=== PATIENT | female | born 1930 | race Caucasian/White ===

== ENCOUNTER 2018-10-06 07:17 | Inpatient (IN) ==
[2018-10-06] MEDS ORDERED: SODIUM CHLORIDE 0.9% 1,000 ML IV SCH (10:00)
[2018-10-06] MEDS ORDERED: GLUCAGON 1 MG VIAL IM PRN (10:36)
[2018-10-06] MEDS ORDERED: DEXTROSE 50% 25 GM/50 ML VIAL IV PRN (10:36)
[2018-10-06] MEDS: ALBUTEROL/IPRATROPIUM 3 ML NEB RESP TX SCH ×4 (11:02→23:05)
[2018-10-06] MEDS: PANTOPRAZOLE 40 MG VIAL IV SCH (11:09)
[2018-10-06] MEDS: MEROPENEM 500 MG in SODIUM CHLORIDE 0.9% 100 ML IV SCH ×2 (11:09→17:34)
[2018-10-06 11:15] LABS: ABG Base Excess -2.7 MMOL/L (-2.5-2.5); ABG HCO3 22.1 MMOL/L (20-26); ABG Oxygen Saturation 93.8 % (95-100); ABG PCO2 43.1 MM HG (35-48); ABG PH 7.338 (7.35-7.45); ABG PO2 72.1 MM HG (80-95); ABG TCO2 20.6 MMOL/L (23-27)
[2018-10-06] MEDS: FLUOROMETHOLONE 0.1% OPH SUSP 5 ML BOTTLE BOTH EYES SCH (13:18)
[2018-10-06] MEDS: INSULIN REGULAR 100 UNIT/ML SUBCUT SCH ×3 (13:18→22:13)
[2018-10-06] MEDS: ACETYLCYSTEINE 20% 800 MG/4 ML VIAL RESP TX SCH ×2 (14:25→23:05)
[2018-10-06] MEDS: ONDANSETRON 4 MG/2 ML VIAL IV PRN (17:12)
[2018-10-06] MEDS: FUROSEMIDE 40 MG/4 ML VIAL IV SCH (17:12)
[2018-10-06] MEDS: TIMOLOL 0.5% OPH SOLN 5 ML BOTTLE BOTH EYES SCH (22:14)
[2018-10-06] MEDS: ENOXAPARIN 40 MG/0.4 ML SYRINGE SUBCUT SCH (22:14)
[2018-10-06] MEDS: PRAVASTATIN 20 MG TABLET PO SCH (22:25)
[2018-10-06 23:30] LABS: Troponin I 0.018 NG/ML (0.00-0.045)
[2018-10-07] MEDS: ALBUTEROL/IPRATROPIUM 3 ML NEB RESP TX SCH ×6 (02:34→22:55)
[2018-10-07] MEDS: MEROPENEM 500 MG in SODIUM CHLORIDE 0.9% 100 ML IV SCH ×3 (02:58→18:07)
[2018-10-07 03:50] LABS: ABG HCO3 24.4 MMOL/L (20-26); ABG Oxygen Saturation 94.6 % (95-100); ABG PH 7.415 (7.35-7.45); ABG PO2 73.4 MM HG (80-95); ABG TCO2 21.6 MMOL/L (23-27); Allen Test Positive; Pt O2 Delivery Device BIPAP
[2018-10-07 04:38] LABS: Basophils % 0.1 % (0.0-0.8); Eosinophils % 0.1 % (0.00-10.9); Hematocrit 35.2 VOL% (35.7-47.0); Hemoglobin 11.4 GM/DL (12.0-16.0); Immature Granulocytes % 0.5 %; Immature Granulocytes Absolute 0.09 #; Lymphocytes # 1.5 10*3/uL (1.4-4.0); Lymphocytes % 8.1 % (21.3-54.2); Mean Corpuscular HGB Conc 32.4 GM/DL (32-36); Mean Corpuscular Hemoglobin 30 PG (27-34); Mean Corpuscular Volume 91.2 FL (87-102); Mean Platelet Volume 12.3 FL (9.6-12.0); Monocytes # 1.3 10*3/uL (0.11-0.8); Monocytes % 7.4 % (1.7-12.7); NRBC # 0.02 10*3/uL; Neutrophils # 15.3 10*3/uL (1.4-7.4); Neutrophils % 83.8 % (38.7-73.9); Platelet Count 232 T/CUMM (130-400); Red Blood Count 3.86 MC/CUMM (3.8-5.5); Red Cell Distribution Width 14.6 % (9.3-17.3); White Blood Count 18.2 T/CUMM (4-12)
[2018-10-07 05:18] LABS: Albumin 2.5 G/DL (3.4-5.0); Bilirubin,Total 0.9 MG/DL (0.2-1.0); Calcium 8.1 MG/DL (8.5-10.1); Osmolality,Calculated 280.1 MOS/KG (273-304); Potassium 3.7 MMOL/L (3.5-5.1); Total Protein 6.3 G/DL (6.4-8.3)
[2018-10-07 05:24] LABS: Troponin I 0.021 NG/ML (0.00-0.045)
[2018-10-07] MEDS ORDERED: PHENYLEPHRINE DRIP 40 MG/250 ML PREMIX IV ONE (06:49)
[2018-10-07] MEDS: PHENYLEPHRINE DRIP 40 MG/250 ML PREMIX IV PRN (06:53)
[2018-10-07] MEDS: ACETYLCYSTEINE 20% 800 MG/4 ML VIAL RESP TX SCH ×3 (07:35→22:56)
[2018-10-07] MEDS: INSULIN REGULAR 100 UNIT/ML SUBCUT SCH ×4 (08:42→22:04)
[2018-10-07] MEDS: AMIODARONE 200 MG TABLET PO SCH (08:43)
[2018-10-07] MEDS: CLOPIDOGREL 75 MG TABLET PO SCH (08:43)
[2018-10-07] MEDS: PANTOPRAZOLE 40 MG VIAL IV SCH (08:43)
[2018-10-07] MEDS: FUROSEMIDE 40 MG/4 ML VIAL IV SCH ×2 (08:43→15:59)
[2018-10-07] MEDS: TIMOLOL 0.5% OPH SOLN 5 ML BOTTLE BOTH EYES SCH ×2 (08:44→22:15)
[2018-10-07 10:09] LABS: Apearance,Urine Slightly Hazy (Clear); Bacteria,Urine Occasional /HPF (Few); Bilirubin,Urine Negative (Negative); Blood, Urine Small mg/dL (Negative); Glucose,Urine (UA) Negative (Negative); Ketones,Urine Negative (Negative); Mucus,Urine Occasional /LPF (Occasional); Nitrite,Urine Negative (Negative); Protein,Urine Negative; Squamous Epithelial Cell,Urine Occasional /HPF (0-10); Urine Color Yellow (Yellow); Urine Specific Gravity 1.006 (1.001-1.035); Urine Urobilinogen < 2.0 EU/DL (0.2-1.0); WBC,Urine 2 /HPF (0-6)
[2018-10-07] MEDS: FLUOROMETHOLONE 0.1% OPH SUSP 5 ML BOTTLE BOTH EYES SCH (11:15)
[2018-10-07] MEDS ORDERED: ASPIRIN CHEW 81 MG TABLET PO ONE (21:15)
[2018-10-07] MEDS ORDERED: NITROGLYCERIN SL 0.4 MG TABLET SL ONE (21:18)
[2018-10-07] MEDS ORDERED: MORPHINE 4 MG/1 ML VIAL ONE (21:18)
[2018-10-07] MEDS: NITROGLYCERIN SL 0.4 MG TABLET SL PRN ×2 (21:20→21:30)
[2018-10-07] MEDS: MORPHINE 4 MG/1 ML VIAL IV PRN (21:28)
[2018-10-07] MEDS: ONDANSETRON 4 MG/2 ML VIAL IV PRN (21:55)
[2018-10-07] MEDS: PRAVASTATIN 20 MG TABLET PO SCH (22:04)
[2018-10-07] MEDS: ENOXAPARIN 40 MG/0.4 ML SYRINGE SUBCUT SCH (22:04)
[2018-10-07] MEDS: DORZOLAMIDE 2% OPH SOLN 10 ML BOTTLE BOTH EYES SCH (22:15)
[2018-10-08 01:24] LABS: Troponin I 0.025 NG/ML (0.00-0.045)
[2018-10-08] MEDS: MEROPENEM 500 MG in SODIUM CHLORIDE 0.9% 100 ML IV SCH ×3 (03:34→17:39)
[2018-10-08] MEDS: ALBUTEROL/IPRATROPIUM 3 ML NEB RESP TX SCH ×6 (04:30→23:50)
[2018-10-08 04:32] LABS: Basophils % 0.1 % (0.0-0.8); Eosinophils % 0.1 % (0.00-10.9); Hematocrit 37.4 VOL% (35.7-47.0); Hemoglobin 11.9 GM/DL (12.0-16.0); Immature Granulocytes % 0.6 %; Immature Granulocytes Absolute 0.11 #; Lymphocytes # 1.1 10*3/uL (1.4-4.0); Lymphocytes % 5.6 % (21.3-54.2); Mean Corpuscular HGB Conc 31.8 GM/DL (32-36); Mean Corpuscular Hemoglobin 29 PG (27-34); Mean Corpuscular Volume 91.7 FL (87-102); Mean Platelet Volume 11.5 FL (9.6-12.0); Monocytes # 1.6 10*3/uL (0.11-0.8); Monocytes % 8.6 % (1.7-12.7); NRBC # 0.02 10*3/uL; Neutrophils # 16.1 10*3/uL (1.4-7.4); Platelet Count 311 T/CUMM (130-400); Red Blood Count 4.08 MC/CUMM (3.8-5.5); Red Cell Distribution Width 15.1 % (9.3-17.3); White Blood Count 18.9 T/CUMM (4-12)
[2018-10-08 04:45] LABS: ABG Base Excess 1.7 MMOL/L (-2.5-2.5); ABG HCO3 25.8 MMOL/L (20-26); ABG Oxygen Saturation 91.9 % (95-100); ABG PH 7.438 (7.35-7.45); ABG PO2 63.6 MM HG (80-95); ABG TCO2 22.6 MMOL/L (23-27); Pt O2 Delivery Device BIPAP
[2018-10-08 04:55] LABS: INR 1.1; PT Patient Result 11.6 SECS
[2018-10-08 04:56] LABS: Troponin I 0.019 NG/ML (0.00-0.045)
[2018-10-08 05:15] LABS: Albumin 2.4 G/DL (3.4-5.0); Bilirubin,Total 0.9 MG/DL (0.2-1.0); Calcium 7.5 MG/DL (8.5-10.1); Osmolality,Calculated 285.7 MOS/KG (273-304); Total Protein 6.4 G/DL (6.4-8.3)
[2018-10-08] MEDS: PHENYLEPHRINE DRIP 40 MG/250 ML PREMIX IV PRN ×3 (06:40→18:03)
[2018-10-08] MEDS: ACETYLCYSTEINE 20% 800 MG/4 ML VIAL RESP TX SCH ×3 (07:02→23:51)
[2018-10-08] MEDS ORDERED: FUROSEMIDE 40 MG/4 ML VIAL IV ONE (09:36)
[2018-10-08] MEDS: INSULIN REGULAR 100 UNIT/ML SUBCUT SCH ×4 (10:05→23:23)
[2018-10-08] MEDS: AMIODARONE 200 MG TABLET PO SCH (10:05)
[2018-10-08] MEDS: CLOPIDOGREL 75 MG TABLET PO SCH (10:06)
[2018-10-08] MEDS: POTASSIUM CHLORIDE 20 MEQ TABLET PO SCH ×4 (10:06→23:44)
[2018-10-08] MEDS: PANTOPRAZOLE 40 MG VIAL IV SCH (10:06)
[2018-10-08] MEDS: DIGOXIN 0.5 MG/2 ML AMP IV ONE ×2 (10:08→12:35)
[2018-10-08] MEDS: ASPIRIN EC 81 MG TABLET PO SCH (10:08)
[2018-10-08] MEDS: FUROSEMIDE 40 MG/4 ML VIAL IV SCH ×2 (10:19→15:51)
[2018-10-08] MEDS: TIMOLOL 0.5% OPH SOLN 5 ML BOTTLE BOTH EYES SCH ×2 (10:23→23:16)
[2018-10-08] MEDS: DORZOLAMIDE 2% OPH SOLN 10 ML BOTTLE BOTH EYES SCH ×2 (10:24→23:16)
[2018-10-08] MEDS: LEVOFLOXACIN INJ 500 MG in PREMIX 1 EACH IV SCH (11:58)
[2018-10-08] MEDS ORDERED: DIGOXIN 0.5 MG/2 ML AMP ONE (12:25)
[2018-10-08] MEDS ORDERED: DIGOXIN 0.5 MG/2 ML AMP IV ONE (12:31)
[2018-10-08] MEDS: FLUOROMETHOLONE 0.1% OPH SUSP 5 ML BOTTLE BOTH EYES SCH (15:08)
[2018-10-08] MEDS: METOPROLOL TARTRATE 5 MG/5 ML VIAL IV SCH (17:39)
[2018-10-08] MEDS: ENOXAPARIN 40 MG/0.4 ML SYRINGE SUBCUT SCH (23:16)
[2018-10-08] MEDS ORDERED: POTASSIUM CHLORIDE 20 MEQ TABLET PO SCH (23:45)
[2018-10-09] MEDS: METOPROLOL TARTRATE 5 MG/5 ML VIAL IV SCH ×5 (00:02→17:21)
[2018-10-09] MEDS: ALBUTEROL/IPRATROPIUM 3 ML NEB RESP TX SCH ×6 (03:09→23:50)
[2018-10-09] MEDS: PHENYLEPHRINE DRIP 40 MG/250 ML PREMIX IV PRN ×3 (03:30→22:13)
[2018-10-09] MEDS: MEROPENEM 500 MG in SODIUM CHLORIDE 0.9% 100 ML IV SCH ×3 (03:55→17:36)
[2018-10-09 04:32] LABS: Basophils % 0.1 % (0.0-0.8); Hematocrit 38.1 VOL% (35.7-47.0); Hemoglobin 11.8 GM/DL (12.0-16.0); Immature Granulocytes % 0.4 %; Immature Granulocytes Absolute 0.08 #; Mean Corpuscular Hemoglobin 28 PG (27-34); Mean Corpuscular Volume 90.9 FL (87-102); Mean Platelet Volume 11.8 FL (9.6-12.0); Monocytes # 2.2 10*3/uL (0.11-0.8); Monocytes % 11.5 % (1.7-12.7); Neutrophils # 15.8 10*3/uL (1.4-7.4); Platelet Count 310 T/CUMM (130-400); Red Blood Count 4.19 MC/CUMM (3.8-5.5); Red Cell Distribution Width 15.3 % (9.3-17.3); White Blood Count 19.1 T/CUMM (4-12)
[2018-10-09 05:04] LABS: Albumin 2.4 G/DL (3.4-5.0); Calcium 8.2 MG/DL (8.5-10.1); Osmolality,Calculated 290.4 MOS/KG (273-304); Potassium 2.9 MMOL/L (3.5-5.1); Total Protein 6.6 G/DL (6.4-8.3)
[2018-10-09] MEDS: ACETYLCYSTEINE 20% 800 MG/4 ML VIAL RESP TX SCH ×3 (07:05→23:50)
[2018-10-09] MEDS: INSULIN REGULAR 100 UNIT/ML SUBCUT SCH ×4 (08:15→21:26)
[2018-10-09] MEDS: DIGOXIN 0.5 MG/2 ML AMP IV SCH (08:15)
[2018-10-09] MEDS: FUROSEMIDE 40 MG/4 ML VIAL IV SCH ×2 (08:16→16:30)
[2018-10-09] MEDS: PANTOPRAZOLE 40 MG VIAL IV SCH (08:16)
[2018-10-09] MEDS: ONDANSETRON 4 MG/2 ML VIAL IV PRN (08:16)
[2018-10-09] MEDS: ASPIRIN EC 81 MG TABLET PO SCH (08:17)
[2018-10-09] MEDS: AMIODARONE 200 MG TABLET PO SCH (08:17)
[2018-10-09] MEDS: TIMOLOL 0.5% OPH SOLN 5 ML BOTTLE BOTH EYES SCH ×2 (08:17→21:21)
[2018-10-09] MEDS: CLOPIDOGREL 75 MG TABLET PO SCH (08:17)
[2018-10-09] MEDS: POTASSIUM CHLORIDE RIDER 20 MEQ in PREMIX 1 EACH IV PRN ×2 (08:18→10:49)
[2018-10-09] MEDS: DORZOLAMIDE 2% OPH SOLN 10 ML BOTTLE BOTH EYES SCH ×2 (08:18→21:22)
[2018-10-09] MEDS: INSULIN GLARGINE 100 UNIT/ML SUBCUT SCH (08:28)
[2018-10-09] MEDS: POTASSIUM CHLORIDE 20 MEQ TABLET PO SCH ×3 (08:28→16:31)
[2018-10-09] MEDS: LEVOFLOXACIN INJ 500 MG in PREMIX 1 EACH IV SCH (09:24)
[2018-10-09] MEDS: ACETAMINOPHEN 325 MG TABLET PO PRN (11:20)
[2018-10-09] MEDS: POTASSIUM CHLORIDE RIDER 10 MEQ in PREMIX 1 EACH IV PRN (12:25)
[2018-10-09] MEDS: FLUOROMETHOLONE 0.1% OPH SUSP 5 ML BOTTLE BOTH EYES SCH (12:26)
[2018-10-09 13:16] LABS: Mycoplasma pneumoniae Ab, IgG Negative (Negative); Mycoplasma pneumoniae Ab, IgM Negative (Negative)
[2018-10-09] MEDS: ENOXAPARIN 40 MG/0.4 ML SYRINGE SUBCUT SCH (21:20)
[2018-10-10] MEDS: METOPROLOL TARTRATE 5 MG/5 ML VIAL IV SCH ×4 (00:01→18:05)
[2018-10-10] MEDS: ALBUTEROL/IPRATROPIUM 3 ML NEB RESP TX SCH ×6 (03:07→23:59)
[2018-10-10] MEDS: MEROPENEM 500 MG in SODIUM CHLORIDE 0.9% 100 ML IV SCH ×3 (03:08→18:05)
[2018-10-10 04:50] LABS: Basophils % 0.1 % (0.0-0.8); Eosinophils % 0.1 % (0.00-10.9); Hemoglobin 12.5 GM/DL (12.0-16.0); Immature Granulocytes % 1.6 %; Immature Granulocytes Absolute 0.32 #; Lymphocytes # 1.4 10*3/uL (1.4-4.0); Mean Corpuscular HGB Conc 31.3 GM/DL (32-36); Mean Corpuscular Hemoglobin 29 PG (27-34); Mean Corpuscular Volume 92.6 FL (87-102); Mean Platelet Volume 11.8 FL (9.6-12.0); Monocytes % 9.8 % (1.7-12.7); Neutrophils # 16.2 10*3/uL (1.4-7.4); Neutrophils % 81.4 % (38.7-73.9); Platelet Count 303 T/CUMM (130-400); Red Blood Count 4.32 MC/CUMM (3.8-5.5); Red Cell Distribution Width 15.1 % (9.3-17.3); White Blood Count 19.9 T/CUMM (4-12)
[2018-10-10 06:03] LABS: Calcium 8.4 MG/DL (8.5-10.1); Osmolality,Calculated 287.3 MOS/KG (273-304); Potassium 2.8 MMOL/L (3.5-5.1)
[2018-10-10] MEDS: POTASSIUM CHLORIDE RIDER 20 MEQ in PREMIX 1 EACH IV PRN ×2 (06:21→09:00)
[2018-10-10] MEDS: ACETYLCYSTEINE 20% 800 MG/4 ML VIAL RESP TX SCH ×3 (07:23→23:59)
[2018-10-10] MEDS: PHENYLEPHRINE DRIP 40 MG/250 ML PREMIX IV PRN ×2 (07:40→23:38)
[2018-10-10] MEDS: INSULIN REGULAR 100 UNIT/ML SUBCUT SCH ×4 (07:45→21:13)
[2018-10-10] MEDS: PANTOPRAZOLE 40 MG VIAL IV SCH (08:00)
[2018-10-10] MEDS: DIGOXIN 0.5 MG/2 ML AMP IV SCH (08:00)
[2018-10-10] MEDS: FUROSEMIDE 40 MG/4 ML VIAL IV SCH ×2 (08:00→16:15)
[2018-10-10] MEDS: TIMOLOL 0.5% OPH SOLN 5 ML BOTTLE BOTH EYES SCH ×2 (08:15→21:12)
[2018-10-10] MEDS: ASPIRIN EC 81 MG TABLET PO SCH (09:00)
[2018-10-10] MEDS: CLOPIDOGREL 75 MG TABLET PO SCH (09:00)
[2018-10-10] MEDS: INSULIN GLARGINE 100 UNIT/ML SUBCUT SCH (09:00)
[2018-10-10] MEDS: DORZOLAMIDE 2% OPH SOLN 10 ML BOTTLE BOTH EYES SCH ×2 (09:00→21:13)
[2018-10-10] MEDS: AMIODARONE 200 MG TABLET PO SCH (09:00)
[2018-10-10] MEDS ORDERED: POTASSIUM CHLORIDE 20 MEQ PACK PO SCH (10:00)
[2018-10-10] MEDS: POTASSIUM CHLORIDE RIDER 10 MEQ in PREMIX 1 EACH IV PRN (11:00)
[2018-10-10] MEDS: LEVOFLOXACIN INJ 500 MG in PREMIX 1 EACH IV SCH (11:20)
[2018-10-10] MEDS: FLUOROMETHOLONE 0.1% OPH SUSP 5 ML BOTTLE BOTH EYES SCH (12:00)
[2018-10-10 12:35] LABS: Calcium 8.1 MG/DL (8.5-10.1); Osmolality,Calculated 285.8 MOS/KG (273-304); Potassium 3.9 MMOL/L (3.5-5.1)
[2018-10-10] MEDS: ENOXAPARIN 40 MG/0.4 ML SYRINGE SUBCUT SCH (21:13)
[2018-10-11] MEDS: METOPROLOL TARTRATE 5 MG/5 ML VIAL IV SCH ×5 (00:42→23:41)
[2018-10-11] MEDS: MEROPENEM 500 MG in SODIUM CHLORIDE 0.9% 100 ML IV SCH ×3 (03:59→18:15)
[2018-10-11 04:28] LABS: Basophils % 0.1 % (0.0-0.8); Eosinophils # 0.2 10*3/uL (0.0-0.87); Hemoglobin 12.2 GM/DL (12.0-16.0); Immature Granulocytes % 0.8 %; Immature Granulocytes Absolute 0.14 #; Lymphocytes # 1.4 10*3/uL (1.4-4.0); Lymphocytes % 7.8 % (21.3-54.2); Mean Corpuscular HGB Conc 31.3 GM/DL (32-36); Mean Corpuscular Hemoglobin 29 PG (27-34); Mean Corpuscular Volume 93.1 FL (87-102); Mean Platelet Volume 11.5 FL (9.6-12.0); Monocytes # 1.5 10*3/uL (0.11-0.8); Monocytes % 8.2 % (1.7-12.7); Neutrophils # 14.5 10*3/uL (1.4-7.4); Neutrophils % 82.1 % (38.7-73.9); Platelet Count 274 T/CUMM (130-400); Red Blood Count 4.19 MC/CUMM (3.8-5.5); Red Cell Distribution Width 15.1 % (9.3-17.3); White Blood Count 17.7 T/CUMM (4-12)
[2018-10-11 04:42] LABS: Calcium 8.2 MG/DL (8.5-10.1); Osmolality,Calculated 283.4 MOS/KG (273-304); Potassium 3.2 MMOL/L (3.5-5.1)
[2018-10-11] MEDS: ALBUTEROL/IPRATROPIUM 3 ML NEB RESP TX SCH ×5 (05:47→19:16)
[2018-10-11] MEDS: FUROSEMIDE 40 MG/4 ML VIAL IV SCH ×3 (06:15→21:09)
[2018-10-11] MEDS: ACETYLCYSTEINE 20% 800 MG/4 ML VIAL RESP TX SCH ×2 (06:49→14:32)
[2018-10-11] MEDS: INSULIN REGULAR 100 UNIT/ML SUBCUT SCH ×4 (07:38→20:00)
[2018-10-11] MEDS ORDERED: POTASSIUM CHLORIDE 20 MEQ PACK PO SCH (09:00)
[2018-10-11] MEDS: AMIODARONE 200 MG TABLET PO SCH (09:30)
[2018-10-11] MEDS: TIMOLOL 0.5% OPH SOLN 5 ML BOTTLE BOTH EYES SCH ×2 (09:30→20:00)
[2018-10-11] MEDS: INSULIN GLARGINE 100 UNIT/ML SUBCUT SCH (09:30)
[2018-10-11] MEDS: CLOPIDOGREL 75 MG TABLET PO SCH (09:30)
[2018-10-11] MEDS: DIGOXIN 0.5 MG/2 ML AMP IV SCH (09:30)
[2018-10-11] MEDS: ASPIRIN EC 81 MG TABLET PO SCH (09:30)
[2018-10-11] MEDS: PANTOPRAZOLE 40 MG VIAL IV SCH (09:35)
[2018-10-11] MEDS: DORZOLAMIDE 2% OPH SOLN 10 ML BOTTLE BOTH EYES SCH ×2 (09:40→20:00)
[2018-10-11] MEDS: NYSTATIN 500,000 UNIT/5 ML UDCUP SWISH/SWAL SCH ×4 (10:00→20:00)
[2018-10-11] MEDS: LEVOFLOXACIN INJ 500 MG in PREMIX 1 EACH IV SCH (10:30)
[2018-10-11] MEDS: ASCORBIC ACID 500 MG TABLET PO SCH ×2 (12:05→20:00)
[2018-10-11] MEDS: FLUOROMETHOLONE 0.1% OPH SUSP 5 ML BOTTLE BOTH EYES SCH (12:05)
[2018-10-11] MEDS: SPIRONOLACTONE 25 MG TABLET PO SCH (14:15)
[2018-10-11] MEDS: PHENYLEPHRINE DRIP 40 MG/250 ML PREMIX IV PRN (18:30)
[2018-10-11] MEDS: ENOXAPARIN 40 MG/0.4 ML SYRINGE SUBCUT SCH (20:00)
[2018-10-11] MEDS: IBUPROFEN 400 MG TABLET PO PRN (20:01)
[2018-10-12] MEDS: ALBUTEROL/IPRATROPIUM 3 ML NEB RESP TX SCH ×7 (00:06→22:42)
[2018-10-12] MEDS: ACETYLCYSTEINE 20% 800 MG/4 ML VIAL RESP TX SCH ×4 (00:06→22:42)
[2018-10-12] MEDS: MEROPENEM 500 MG in SODIUM CHLORIDE 0.9% 100 ML IV SCH ×3 (03:41→18:21)
[2018-10-12 05:12] LABS: Basophils % 0.2 % (0.0-0.8); Eosinophils # 0.4 10*3/uL (0.0-0.87); Eosinophils % 2.3 % (0.00-10.9); Hematocrit 40.3 VOL% (35.7-47.0); Hemoglobin 12.5 GM/DL (12.0-16.0); Immature Granulocytes % 0.8 %; Immature Granulocytes Absolute 0.14 #; Lymphocytes # 1.8 10*3/uL (1.4-4.0); Lymphocytes % 10.8 % (21.3-54.2); Mean Corpuscular Hemoglobin 29 PG (27-34); Mean Platelet Volume 11.4 FL (9.6-12.0); Monocytes # 1.4 10*3/uL (0.11-0.8); Monocytes % 7.9 % (1.7-12.7); Neutrophils # 13.3 10*3/uL (1.4-7.4); Platelet Count 285 T/CUMM (130-400); Red Blood Count 4.38 MC/CUMM (3.8-5.5); Red Cell Distribution Width 14.9 % (9.3-17.3)
[2018-10-12 05:40] LABS: Calcium 8.3 MG/DL (8.5-10.1); Osmolality,Calculated 285.3 MOS/KG (273-304); Potassium 2.8 MMOL/L (3.5-5.1)
[2018-10-12 05:44] LABS: Albumin 1.8 G/DL (3.4-5.0); Bilirubin,Direct 0.33 MG/DL (0.0-0.20); Bilirubin,Indirect 0.4 MG/DL (0.0-1.0); Bilirubin,Total 0.7 MG/DL (0.2-1.0); Total Protein 6.2 G/DL (6.4-8.3)
[2018-10-12] MEDS: FUROSEMIDE 40 MG/4 ML VIAL IV SCH (05:50)
[2018-10-12] MEDS: METOPROLOL TARTRATE 5 MG/5 ML VIAL IV SCH ×3 (05:54→17:43)
[2018-10-12] MEDS: POTASSIUM CHLORIDE RIDER 20 MEQ in PREMIX 1 EACH IV PRN ×2 (06:11→08:04)
[2018-10-12] MEDS: ASCORBIC ACID 500 MG TABLET PO SCH ×2 (08:03→21:12)
[2018-10-12] MEDS: PANTOPRAZOLE 40 MG VIAL IV SCH (08:03)
[2018-10-12] MEDS: AMIODARONE 200 MG TABLET PO SCH (08:03)
[2018-10-12] MEDS: DIGOXIN 0.5 MG/2 ML AMP IV SCH (08:03)
[2018-10-12] MEDS: NYSTATIN 500,000 UNIT/5 ML UDCUP SWISH/SWAL SCH ×4 (08:03→21:11)
[2018-10-12] MEDS: CLOPIDOGREL 75 MG TABLET PO SCH (08:03)
[2018-10-12] MEDS: ASPIRIN EC 81 MG TABLET PO SCH (08:04)
[2018-10-12] MEDS: INSULIN REGULAR 100 UNIT/ML SUBCUT SCH ×4 (08:04→20:02)
[2018-10-12] MEDS: POTASSIUM CHLORIDE 20 MEQ TABLET PO SCH ×4 (08:04→16:32)
[2018-10-12] MEDS: SPIRONOLACTONE 25 MG TABLET PO SCH (08:04)
[2018-10-12] MEDS: DORZOLAMIDE 2% OPH SOLN 10 ML BOTTLE BOTH EYES SCH ×2 (08:22→21:12)
[2018-10-12] MEDS: TIMOLOL 0.5% OPH SOLN 5 ML BOTTLE BOTH EYES SCH ×2 (08:22→21:12)
[2018-10-12] MEDS: INSULIN GLARGINE 100 UNIT/ML SUBCUT SCH (09:08)
[2018-10-12] MEDS: LEVOFLOXACIN INJ 500 MG in PREMIX 1 EACH IV SCH (09:42)
[2018-10-12] MEDS: IBUPROFEN 400 MG TABLET PO PRN ×2 (11:03→21:13)
[2018-10-12] MEDS: MORPHINE 4 MG/1 ML VIAL IV PRN ×2 (11:45→16:33)
[2018-10-12] MEDS: FLUOROMETHOLONE 0.1% OPH SUSP 5 ML BOTTLE BOTH EYES SCH (11:50)
[2018-10-12] MEDS: PHENYLEPHRINE DRIP 40 MG/250 ML PREMIX IV PRN (16:10)
[2018-10-12] MEDS: ENOXAPARIN 40 MG/0.4 ML SYRINGE SUBCUT SCH (21:11)
[2018-10-13] MEDS: METOPROLOL TARTRATE 5 MG/5 ML VIAL IV SCH ×4 (00:59→18:07)
[2018-10-13] MEDS: MEROPENEM 500 MG in SODIUM CHLORIDE 0.9% 100 ML IV SCH ×3 (02:04→18:07)
[2018-10-13] MEDS: ALBUTEROL/IPRATROPIUM 3 ML NEB RESP TX SCH ×6 (02:32→23:18)
[2018-10-13 04:46] LABS: Basophils % 0.1 % (0.0-0.8); Eosinophils # 0.3 10*3/uL (0.0-0.87); Eosinophils % 1.9 % (0.00-10.9); Hematocrit 38.3 VOL% (35.7-47.0); Immature Granulocytes % 0.6 %; Immature Granulocytes Absolute 0.09 #; Lymphocytes # 1.6 10*3/uL (1.4-4.0); Lymphocytes % 10.1 % (21.3-54.2); Mean Corpuscular HGB Conc 31.3 GM/DL (32-36); Mean Corpuscular Hemoglobin 29 PG (27-34); Mean Corpuscular Volume 92.5 FL (87-102); Mean Platelet Volume 11.5 FL (9.6-12.0); Monocytes # 1.1 10*3/uL (0.11-0.8); Monocytes % 7.1 % (1.7-12.7); Neutrophils # 12.6 10*3/uL (1.4-7.4); Neutrophils % 80.2 % (38.7-73.9); Platelet Count 234 T/CUMM (130-400); Red Blood Count 4.14 MC/CUMM (3.8-5.5); Red Cell Distribution Width 15.2 % (9.3-17.3); White Blood Count 15.7 T/CUMM (4-12)
[2018-10-13 05:06] LABS: Calcium 8.2 MG/DL (8.5-10.1); Osmolality,Calculated 281.5 MOS/KG (273-304); Potassium 4.1 MMOL/L (3.5-5.1)
[2018-10-13] MEDS: methylPREDNISolone SOD SUC 40 MG/1 ML VIAL IV SCH ×3 (06:40→21:32)
[2018-10-13] MEDS: ACETYLCYSTEINE 20% 800 MG/4 ML VIAL RESP TX SCH (07:02)
[2018-10-13] MEDS: PANTOPRAZOLE 40 MG VIAL IV SCH (08:21)
[2018-10-13] MEDS: SPIRONOLACTONE 50 MG TABLET PO SCH (08:21)
[2018-10-13] MEDS: FUROSEMIDE 40 MG TABLET PO SCH (08:21)
[2018-10-13] MEDS: POTASSIUM CHLORIDE 20 MEQ TABLET PO SCH (08:22)
[2018-10-13] MEDS: NYSTATIN 500,000 UNIT/5 ML UDCUP SWISH/SWAL SCH ×4 (08:22→20:06)
[2018-10-13] MEDS: INSULIN GLARGINE 100 UNIT/ML SUBCUT SCH (08:22)
[2018-10-13] MEDS: DORZOLAMIDE 2% OPH SOLN 10 ML BOTTLE BOTH EYES SCH ×2 (08:22→20:07)
[2018-10-13] MEDS: ASPIRIN EC 81 MG TABLET PO SCH (08:22)
[2018-10-13] MEDS: ASCORBIC ACID 500 MG TABLET PO SCH ×2 (08:22→20:06)
[2018-10-13] MEDS: CLOPIDOGREL 75 MG TABLET PO SCH (08:22)
[2018-10-13] MEDS: DIGOXIN 0.5 MG/2 ML AMP IV SCH (08:22)
[2018-10-13] MEDS: TIMOLOL 0.5% OPH SOLN 5 ML BOTTLE BOTH EYES SCH ×2 (08:22→20:07)
[2018-10-13] MEDS: INSULIN REGULAR 100 UNIT/ML SUBCUT SCH ×4 (08:23→20:05)
[2018-10-13] MEDS: IBUPROFEN 400 MG TABLET PO PRN ×2 (10:14→20:06)
[2018-10-13] MEDS: LEVOFLOXACIN INJ 500 MG in PREMIX 1 EACH IV SCH (11:04)
[2018-10-13] MEDS: FLUOROMETHOLONE 0.1% OPH SUSP 5 ML BOTTLE BOTH EYES SCH (12:39)
[2018-10-13] MEDS: ENOXAPARIN 40 MG/0.4 ML SYRINGE SUBCUT SCH (20:05)
[2018-10-14] MEDS: METOPROLOL TARTRATE 5 MG/5 ML VIAL IV SCH ×4 (00:21→18:13)
[2018-10-14] MEDS: MEROPENEM 500 MG in SODIUM CHLORIDE 0.9% 100 ML IV SCH ×3 (01:39→18:41)
[2018-10-14] MEDS: IBUPROFEN 400 MG TABLET PO PRN ×2 (02:09→22:50)
[2018-10-14] MEDS: ALBUTEROL/IPRATROPIUM 3 ML NEB RESP TX SCH ×6 (03:23→22:57)
[2018-10-14 05:11] LABS: Basophils % 0.1 % (0.0-0.8); Hematocrit 38.5 VOL% (35.7-47.0); Hemoglobin 12.1 GM/DL (12.0-16.0); Immature Granulocytes % 0.5 %; Immature Granulocytes Absolute 0.09 #; Lymphocytes # 0.7 10*3/uL (1.4-4.0); Mean Corpuscular HGB Conc 31.4 GM/DL (32-36); Mean Corpuscular Hemoglobin 29 PG (27-34); Mean Corpuscular Volume 91.4 FL (87-102); Mean Platelet Volume 11.7 FL (9.6-12.0); Monocytes # 0.3 10*3/uL (0.11-0.8); Monocytes % 1.7 % (1.7-12.7); Neutrophils # 15.8 10*3/uL (1.4-7.4); Neutrophils % 93.7 % (38.7-73.9); Platelet Count 256 T/CUMM (130-400); Red Blood Count 4.21 MC/CUMM (3.8-5.5); Red Cell Distribution Width 15.1 % (9.3-17.3); White Blood Count 16.9 T/CUMM (4-12)
[2018-10-14 05:37] LABS: Calcium 8.1 MG/DL (8.5-10.1); Osmolality,Calculated 288.4 MOS/KG (273-304); Potassium 4.1 MMOL/L (3.5-5.1)
[2018-10-14] MEDS: methylPREDNISolone SOD SUC 40 MG/1 ML VIAL IV SCH ×3 (06:02→22:49)
[2018-10-14 07:02] LABS: Anisocytosis 1+; Band Neutrophils 5 % (0-10); Lymphocytes 3 % (20-55); Macrocytosis 1+; Nucleated Red Blood Cells 1 (0-5); Polychromasia Slight; Segmented Neutrophils 92 % (50-85); Total Cells Counted 100
[2018-10-14 07:03] LABS: Platelet Estimate Normal
[2018-10-14] MEDS: INSULIN GLARGINE 100 UNIT/ML SUBCUT SCH (08:00)
[2018-10-14] MEDS: INSULIN REGULAR 100 UNIT/ML SUBCUT SCH ×4 (08:01→21:12)
[2018-10-14] MEDS: DIGOXIN 0.5 MG/2 ML AMP IV SCH (08:01)
[2018-10-14] MEDS: PANTOPRAZOLE 40 MG VIAL IV SCH (08:01)
[2018-10-14] MEDS: SPIRONOLACTONE 50 MG TABLET PO SCH (08:01)
[2018-10-14] MEDS: POTASSIUM CHLORIDE 20 MEQ TABLET PO SCH (08:02)
[2018-10-14] MEDS: ASCORBIC ACID 500 MG TABLET PO SCH ×2 (08:02→21:10)
[2018-10-14] MEDS: TIMOLOL 0.5% OPH SOLN 5 ML BOTTLE BOTH EYES SCH ×2 (08:02→21:08)
[2018-10-14] MEDS: ASPIRIN EC 81 MG TABLET PO SCH (08:02)
[2018-10-14] MEDS: FUROSEMIDE 40 MG TABLET PO SCH (08:02)
[2018-10-14] MEDS: DORZOLAMIDE 2% OPH SOLN 10 ML BOTTLE BOTH EYES SCH ×2 (08:02→21:09)
[2018-10-14] MEDS: CLOPIDOGREL 75 MG TABLET PO SCH (08:02)
[2018-10-14] MEDS: NYSTATIN 500,000 UNIT/5 ML UDCUP SWISH/SWAL SCH ×4 (08:02→21:10)
[2018-10-14] MEDS: LEVOFLOXACIN INJ 500 MG in PREMIX 1 EACH IV SCH (09:39)
[2018-10-14] MEDS: FLUOROMETHOLONE 0.1% OPH SUSP 5 ML BOTTLE BOTH EYES SCH (12:52)
[2018-10-14] MEDS: ENOXAPARIN 40 MG/0.4 ML SYRINGE SUBCUT SCH (21:10)
[2018-10-15] MEDS: METOPROLOL TARTRATE 5 MG/5 ML VIAL IV SCH ×4 (01:37→18:36)
[2018-10-15] MEDS: MEROPENEM 500 MG in SODIUM CHLORIDE 0.9% 100 ML IV SCH ×3 (02:19→18:43)
[2018-10-15] MEDS: ALBUTEROL/IPRATROPIUM 3 ML NEB RESP TX SCH ×6 (02:46→19:20)
[2018-10-15 04:50] LABS: Basophils % 0.1 % (0.0-0.8); Hematocrit 38.5 VOL% (35.7-47.0); Hemoglobin 12.1 GM/DL (12.0-16.0); Immature Granulocytes % 0.7 %; Immature Granulocytes Absolute 0.16 #; Lymphocytes # 0.7 10*3/uL (1.4-4.0); Mean Corpuscular HGB Conc 31.4 GM/DL (32-36); Mean Corpuscular Hemoglobin 28 PG (27-34); Mean Corpuscular Volume 90.4 FL (87-102); Mean Platelet Volume 11.8 FL (9.6-12.0); Monocytes # 0.5 10*3/uL (0.11-0.8); Monocytes % 2.2 % (1.7-12.7); Neutrophils # 20.8 10*3/uL (1.4-7.4); Platelet Count 309 T/CUMM (130-400); Red Blood Count 4.26 MC/CUMM (3.8-5.5); Red Cell Distribution Width 15.3 % (9.3-17.3); White Blood Count 22.1 T/CUMM (4-12)
[2018-10-15 05:15] LABS: Lymphocytes 4 % (20-55); Segmented Neutrophils 96 % (50-85); Total Cells Counted 100
[2018-10-15 05:16] LABS: Hypochromasia 1+; Microcytosis 1+; Osmolality,Calculated 287.7 MOS/KG (273-304); Potassium 4.2 MMOL/L (3.5-5.1)
[2018-10-15 05:17] LABS: Platelet Estimate Normal
[2018-10-15] MEDS: methylPREDNISolone SOD SUC 40 MG/1 ML VIAL IV SCH ×2 (05:46→16:51)
[2018-10-15] MEDS: ASCORBIC ACID 500 MG TABLET PO SCH ×2 (09:49→21:18)
[2018-10-15] MEDS: FUROSEMIDE 40 MG TABLET PO SCH (09:50)
[2018-10-15] MEDS: FLUOROMETHOLONE 0.1% OPH SUSP 5 ML BOTTLE BOTH EYES SCH (09:50)
[2018-10-15] MEDS: SPIRONOLACTONE 50 MG TABLET PO SCH (09:50)
[2018-10-15] MEDS: NYSTATIN 500,000 UNIT/5 ML UDCUP SWISH/SWAL SCH ×4 (09:50→21:18)
[2018-10-15] MEDS: CLOPIDOGREL 75 MG TABLET PO SCH (09:50)
[2018-10-15] MEDS: DORZOLAMIDE 2% OPH SOLN 10 ML BOTTLE BOTH EYES SCH ×2 (09:50→21:23)
[2018-10-15] MEDS: ASPIRIN EC 81 MG TABLET PO SCH (09:51)
[2018-10-15] MEDS: LEVOFLOXACIN INJ 500 MG in PREMIX 1 EACH IV SCH (09:51)
[2018-10-15] MEDS: POTASSIUM CHLORIDE 20 MEQ TABLET PO SCH (09:51)
[2018-10-15] MEDS: PANTOPRAZOLE 40 MG VIAL IV SCH (09:52)
[2018-10-15] MEDS: DIGOXIN 0.5 MG/2 ML AMP IV SCH (09:52)
[2018-10-15] MEDS: INSULIN GLARGINE 100 UNIT/ML SUBCUT SCH (09:53)
[2018-10-15] MEDS: INSULIN REGULAR 100 UNIT/ML SUBCUT SCH ×4 (09:54→21:22)
[2018-10-15] MEDS: TIMOLOL 0.5% OPH SOLN 5 ML BOTTLE BOTH EYES SCH ×2 (10:21→21:22)
[2018-10-15] MEDS: ONDANSETRON 4 MG/2 ML VIAL IV PRN (13:07)
[2018-10-15] MEDS: IBUPROFEN 400 MG TABLET PO PRN (21:16)
[2018-10-15] MEDS: APIXABAN 2.5 MG TABLET PO SCH (21:18)
[2018-10-16] MEDS: ALBUTEROL/IPRATROPIUM 3 ML NEB RESP TX SCH ×6 (00:13→22:56)
[2018-10-16] MEDS: METOPROLOL TARTRATE 5 MG/5 ML VIAL IV SCH ×4 (00:52→18:18)
[2018-10-16] MEDS: MEROPENEM 500 MG in SODIUM CHLORIDE 0.9% 100 ML IV SCH (02:40)
[2018-10-16] MEDS: methylPREDNISolone SOD SUC 40 MG/1 ML VIAL IV SCH ×2 (04:42→09:58)
[2018-10-16 05:05] LABS: Basophils % 0.2 % (0.0-0.8); Hematocrit 40.8 VOL% (35.7-47.0); Hemoglobin 12.6 GM/DL (12.0-16.0); Immature Granulocytes % 0.8 %; Immature Granulocytes Absolute 0.17 #; Lymphocytes # 0.8 10*3/uL (1.4-4.0); Lymphocytes % 3.9 % (21.3-54.2); Mean Corpuscular HGB Conc 30.9 GM/DL (32-36); Mean Corpuscular Hemoglobin 28 PG (27-34); Mean Corpuscular Volume 91.5 FL (87-102); Mean Platelet Volume 11.4 FL (9.6-12.0); Monocytes % 4.9 % (1.7-12.7); Neutrophils # 18.6 10*3/uL (1.4-7.4); Neutrophils % 90.2 % (38.7-73.9); Platelet Count 305 T/CUMM (130-400); Red Blood Count 4.46 MC/CUMM (3.8-5.5); Red Cell Distribution Width 15.2 % (9.3-17.3); White Blood Count 20.7 T/CUMM (4-12)
[2018-10-16 05:36] LABS: Calcium 8.2 MG/DL (8.5-10.1); Osmolality,Calculated 286.5 MOS/KG (273-304); Potassium 4.3 MMOL/L (3.5-5.1)
[2018-10-16 06:42] LABS: Band Neutrophils 1 % (0-10); Lymphocytes 1 % (20-55); Segmented Neutrophils 95 % (50-85); Total Cells Counted 100
[2018-10-16 06:43] LABS: Hypochromasia 1+; Microcytosis 1+; Ovalocytes Slight; Platelet Estimate Adequate
[2018-10-16] MEDS: APIXABAN 2.5 MG TABLET PO SCH ×2 (09:26→22:18)
[2018-10-16] MEDS: POTASSIUM CHLORIDE 20 MEQ TABLET PO SCH (09:26)
[2018-10-16] MEDS: NYSTATIN 500,000 UNIT/5 ML UDCUP SWISH/SWAL SCH ×4 (09:26→22:18)
[2018-10-16] MEDS: ASCORBIC ACID 500 MG TABLET PO SCH ×2 (09:26→22:18)
[2018-10-16] MEDS: SPIRONOLACTONE 50 MG TABLET PO SCH (09:26)
[2018-10-16] MEDS: ASPIRIN EC 81 MG TABLET PO SCH (09:26)
[2018-10-16] MEDS: FUROSEMIDE 40 MG TABLET PO SCH (09:26)
[2018-10-16] MEDS: PANTOPRAZOLE 40 MG VIAL IV SCH (09:48)
[2018-10-16] MEDS: INSULIN REGULAR 100 UNIT/ML SUBCUT SCH ×4 (10:01→22:19)
[2018-10-16] MEDS: INSULIN GLARGINE 100 UNIT/ML SUBCUT SCH (10:01)
[2018-10-16] MEDS: FLUOROMETHOLONE 0.1% OPH SUSP 5 ML BOTTLE BOTH EYES SCH (11:30)
[2018-10-16] MEDS: TIMOLOL 0.5% OPH SOLN 5 ML BOTTLE BOTH EYES SCH ×2 (11:30→22:20)
[2018-10-16] MEDS: DORZOLAMIDE 2% OPH SOLN 10 ML BOTTLE BOTH EYES SCH ×2 (11:33→22:20)
[2018-10-16] MEDS: DIGOXIN 0.5 MG/2 ML AMP IV SCH (16:55)
[2018-10-16] MEDS: ONDANSETRON 4 MG/2 ML VIAL IV PRN (19:38)
[2018-10-16] MEDS ORDERED: PROMETHAZINE INJ 25 MG in SODIUM CHLORIDE 0.9% 50 ML IV PRN (21:06)
[2018-10-16] MEDS ORDERED: PROMETHAZINE 25 MG/1 ML VIAL IM PRN (21:34)
[2018-10-16] MEDS ORDERED: METOCLOPRAMIDE 10 MG/2 ML VIAL IV PRN (22:46)
[2018-10-16] MEDS: SCOPOLAMINE 1.5 MG PATCH TRANSDERM SCH (23:05)
[2018-10-16 23:58] LABS: Troponin I 0.032 NG/ML (0.00-0.045)
[2018-10-17] MEDS ORDERED: BENZOCAINE/BUTAMBEN/TETRACAINE SPRAY 20 GM CAN TOP ONE (00:09)
[2018-10-17] MEDS: METOPROLOL TARTRATE 5 MG/5 ML VIAL IV SCH ×5 (01:05→19:48)
[2018-10-17] MEDS ORDERED: BENZOCAINE/BUTAMBEN/TETRACAINE SPRAY 20 GM CAN TOP PRN (01:08)
[2018-10-17] MEDS: ALBUTEROL/IPRATROPIUM 3 ML NEB RESP TX SCH ×6 (03:25→23:29)
[2018-10-17] MEDS: INSULIN GLARGINE 100 UNIT/ML SUBCUT SCH (10:03)
[2018-10-17] MEDS: NYSTATIN 500,000 UNIT/5 ML UDCUP SWISH/SWAL SCH ×4 (10:06→22:37)
[2018-10-17] MEDS: methylPREDNISolone SOD SUC 40 MG/1 ML VIAL IV SCH (10:07)
[2018-10-17] MEDS: INSULIN REGULAR 100 UNIT/ML SUBCUT SCH ×4 (10:14→22:35)
[2018-10-17] MEDS: FUROSEMIDE 40 MG TABLET PO SCH (10:16)
[2018-10-17] MEDS: PANTOPRAZOLE 40 MG TABLET PO SCH (10:16)
[2018-10-17] MEDS: APIXABAN 2.5 MG TABLET PO SCH ×2 (10:16→22:36)
[2018-10-17] MEDS: POTASSIUM CHLORIDE 20 MEQ TABLET PO SCH (10:16)
[2018-10-17] MEDS: SPIRONOLACTONE 50 MG TABLET PO SCH (10:16)
[2018-10-17] MEDS: ASPIRIN EC 81 MG TABLET PO SCH (10:16)
[2018-10-17] MEDS: ASCORBIC ACID 500 MG TABLET PO SCH ×2 (10:17→22:35)
[2018-10-17] MEDS: TIMOLOL 0.5% OPH SOLN 5 ML BOTTLE BOTH EYES SCH ×2 (10:21→22:37)
[2018-10-17] MEDS: DORZOLAMIDE 2% OPH SOLN 10 ML BOTTLE BOTH EYES SCH ×2 (10:22→22:37)
[2018-10-17] MEDS: FLUOROMETHOLONE 0.1% OPH SUSP 5 ML BOTTLE BOTH EYES SCH (15:49)
[2018-10-18] MEDS: METOPROLOL TARTRATE 5 MG/5 ML VIAL IV SCH ×4 (01:32→17:58)
[2018-10-18] MEDS: ALBUTEROL/IPRATROPIUM 3 ML NEB RESP TX SCH ×6 (03:02→23:59)
[2018-10-18 05:30] LABS: Basophils % 0.1 % (0.0-0.8); Hematocrit 42.5 VOL% (35.7-47.0); Hemoglobin 13.3 GM/DL (12.0-16.0); Immature Granulocytes % 0.7 %; Immature Granulocytes Absolute 0.16 #; Lymphocytes # 1.3 10*3/uL (1.4-4.0); Mean Corpuscular HGB Conc 31.3 GM/DL (32-36); Mean Corpuscular Hemoglobin 28 PG (27-34); Mean Corpuscular Volume 90.8 FL (87-102); Mean Platelet Volume 11.5 FL (9.6-12.0); Monocytes # 1.5 10*3/uL (0.11-0.8); Monocytes % 6.9 % (1.7-12.7); Neutrophils # 18.4 10*3/uL (1.4-7.4); Neutrophils % 86.3 % (38.7-73.9); Platelet Count 324 T/CUMM (130-400); Red Blood Count 4.68 MC/CUMM (3.8-5.5); Red Cell Distribution Width 15.2 % (9.3-17.3); White Blood Count 21.4 T/CUMM (4-12)
[2018-10-18 05:40] LABS: Osmolality,Calculated 288.3 MOS/KG (273-304); Potassium 3.9 MMOL/L (3.5-5.1)
[2018-10-18 05:58] LABS: Hypochromasia 2+; Lymphocytes 3 % (20-55); Platelet Estimate Normal; Segmented Neutrophils 92 % (50-85); Total Cells Counted 100
[2018-10-18] MEDS: INSULIN REGULAR 100 UNIT/ML SUBCUT SCH ×4 (08:13→22:15)
[2018-10-18] MEDS: APIXABAN 2.5 MG TABLET PO SCH ×2 (08:45→22:21)
[2018-10-18] MEDS: PANTOPRAZOLE 40 MG TABLET PO SCH (08:45)
[2018-10-18] MEDS: ASPIRIN EC 81 MG TABLET PO SCH (08:46)
[2018-10-18] MEDS: DEXT 5% NACL 0.45% KCL 10 MEQ 10 MEQ/1,000 ML BAG IV SCH ×2 (08:49→23:59)
[2018-10-18] MEDS: FUROSEMIDE 40 MG TABLET PO SCH (09:03)
[2018-10-18] MEDS: INSULIN GLARGINE 100 UNIT/ML SUBCUT SCH (09:03)
[2018-10-18] MEDS: NYSTATIN 500,000 UNIT/5 ML UDCUP SWISH/SWAL SCH ×4 (09:03→22:16)
[2018-10-18] MEDS: SPIRONOLACTONE 50 MG TABLET PO SCH (09:03)
[2018-10-18] MEDS: ASCORBIC ACID 500 MG TABLET PO SCH ×2 (09:04→22:17)
[2018-10-18] MEDS: TIMOLOL 0.5% OPH SOLN 5 ML BOTTLE BOTH EYES SCH ×2 (11:24→22:16)
[2018-10-18] MEDS: DORZOLAMIDE 2% OPH SOLN 10 ML BOTTLE BOTH EYES SCH ×2 (11:25→22:16)
[2018-10-18] MEDS: FLUOROMETHOLONE 0.1% OPH SUSP 5 ML BOTTLE BOTH EYES SCH (11:50)
[2018-10-19] MEDS: METOPROLOL TARTRATE 5 MG/5 ML VIAL IV SCH ×4 (01:20→18:08)
[2018-10-19 02:28] LABS: Calcium 7.5 MG/DL (8.5-10.1); Osmolality,Calculated 286.7 MOS/KG (273-304)
[2018-10-19] MEDS: ALBUTEROL/IPRATROPIUM 3 ML NEB RESP TX SCH ×6 (03:38→22:27)
[2018-10-19] MEDS: IBUPROFEN 400 MG TABLET PO PRN ×2 (06:59→22:56)
[2018-10-19] MEDS: ASPIRIN EC 81 MG TABLET PO SCH (09:35)
[2018-10-19] MEDS: APIXABAN 2.5 MG TABLET PO SCH ×2 (09:35→23:01)
[2018-10-19] MEDS: FUROSEMIDE 40 MG TABLET PO SCH (09:35)
[2018-10-19] MEDS: SCOPOLAMINE 1.5 MG PATCH TRANSDERM SCH (09:35)
[2018-10-19] MEDS: TIMOLOL 0.5% OPH SOLN 5 ML BOTTLE BOTH EYES SCH ×2 (09:39→23:02)
[2018-10-19] MEDS: DORZOLAMIDE 2% OPH SOLN 10 ML BOTTLE BOTH EYES SCH ×2 (09:39→23:02)
[2018-10-19] MEDS: NYSTATIN 500,000 UNIT/5 ML UDCUP SWISH/SWAL SCH ×4 (09:39→23:05)
[2018-10-19] MEDS: INSULIN REGULAR 100 UNIT/ML SUBCUT SCH ×4 (09:39→23:05)
[2018-10-19] MEDS: INSULIN GLARGINE 100 UNIT/ML SUBCUT SCH (09:40)
[2018-10-19] MEDS: SPIRONOLACTONE 50 MG TABLET PO SCH (09:40)
[2018-10-19] MEDS: PANTOPRAZOLE 40 MG TABLET PO SCH (09:40)
[2018-10-19] MEDS: ASCORBIC ACID 500 MG TABLET PO SCH ×2 (09:40→23:05)
[2018-10-19] MEDS: FLUOROMETHOLONE 0.1% OPH SUSP 5 ML BOTTLE BOTH EYES SCH (12:16)
[2018-10-19] MEDS: SODIUM CHLORIDE 0.45% 1,000 ML IV SCH (13:00)
[2018-10-20] MEDS: METOPROLOL TARTRATE 5 MG/5 ML VIAL IV SCH ×4 (02:24→18:10)
[2018-10-20] MEDS: ALBUTEROL/IPRATROPIUM 3 ML NEB RESP TX SCH ×6 (02:31→23:41)
[2018-10-20] MEDS ORDERED: FLUCONAZOLE 200 MG TABLET PO ONE (08:26)
[2018-10-20 09:57] LABS: Albumin 1.7 G/DL (3.4-5.0); Calcium 7.1 MG/DL (8.5-10.1); Osmolality,Calculated 278.7 MOS/KG (273-304); Potassium 3.6 MMOL/L (3.5-5.1)
[2018-10-20] MEDS: CLOTRIMAZOLE 10 MG TROCHE PO SCH ×4 (10:00→21:55)
[2018-10-20] MEDS: TIMOLOL 0.5% OPH SOLN 5 ML BOTTLE BOTH EYES SCH ×2 (10:06→22:09)
[2018-10-20] MEDS: ASPIRIN EC 81 MG TABLET PO SCH (10:06)
[2018-10-20] MEDS: INSULIN REGULAR 100 UNIT/ML SUBCUT SCH ×4 (10:06→22:09)
[2018-10-20] MEDS: FLUOROMETHOLONE 0.1% OPH SUSP 5 ML BOTTLE BOTH EYES SCH (10:06)
[2018-10-20] MEDS: DORZOLAMIDE 2% OPH SOLN 10 ML BOTTLE BOTH EYES SCH ×2 (10:06→22:09)
[2018-10-20] MEDS: APIXABAN 2.5 MG TABLET PO SCH ×2 (10:08→21:55)
[2018-10-20 12:18] LABS: Apearance,Urine CLEAR (Clear); Bilirubin,Urine Negative (Negative); Blood, Urine Negative (Negative); Glucose,Urine (UA) Negative (Negative); Hyaline Casts,Urine 1 /LPF (0-3); Ketones,Urine Negative (Negative); Nitrite,Urine Negative (Negative); Protein,Urine Negative; Urine Color Yellow (Yellow); Urine Urobilinogen < 2.0 EU/DL (0.2-1.0); WBC,Urine <1 /HPF (0-6)
[2018-10-20] MEDS: ACETAMINOPHEN 325 MG TABLET PO PRN (14:20)
[2018-10-20] MEDS: ONDANSETRON 4 MG/2 ML VIAL IV PRN (14:20)
[2018-10-20] MEDS: SPIRONOLACTONE 50 MG TABLET PO SCH (14:43)
[2018-10-20] MEDS: INSULIN GLARGINE 100 UNIT/ML SUBCUT SCH (14:44)
[2018-10-20] MEDS: PANTOPRAZOLE 40 MG TABLET PO SCH (14:44)
[2018-10-20] MEDS: ASCORBIC ACID 500 MG TABLET PO SCH ×2 (14:45→22:10)
[2018-10-20] MEDS: SODIUM CHLORIDE 0.45% 1,000 ML IV SCH (15:30)
[2018-10-20] MEDS: FUROSEMIDE 40 MG TABLET PO SCH (18:10)
[2018-10-20] MEDS: IBUPROFEN 400 MG TABLET PO PRN (21:55)
[2018-10-21] MEDS: METOPROLOL TARTRATE 5 MG/5 ML VIAL IV SCH ×4 (01:14→18:10)
[2018-10-21] MEDS: ALBUTEROL/IPRATROPIUM 3 ML NEB RESP TX SCH ×5 (03:43→20:07)
[2018-10-21] MEDS: CLOTRIMAZOLE 10 MG TROCHE PO SCH ×5 (07:13→21:51)
[2018-10-21] MEDS: INSULIN REGULAR 100 UNIT/ML SUBCUT SCH ×4 (07:30→21:58)
[2018-10-21] MEDS: INSULIN GLARGINE 100 UNIT/ML SUBCUT SCH (11:10)
[2018-10-21] MEDS: PANTOPRAZOLE 40 MG TABLET PO SCH (11:10)
[2018-10-21] MEDS: SPIRONOLACTONE 50 MG TABLET PO SCH (11:10)
[2018-10-21] MEDS: APIXABAN 2.5 MG TABLET PO SCH ×2 (11:10→21:51)
[2018-10-21] MEDS: ASPIRIN EC 81 MG TABLET PO SCH (11:10)
[2018-10-21] MEDS: ASCORBIC ACID 500 MG TABLET PO SCH ×2 (11:10→21:58)
[2018-10-21] MEDS: FUROSEMIDE 40 MG TABLET PO SCH (11:10)
[2018-10-21] MEDS: DORZOLAMIDE 2% OPH SOLN 10 ML BOTTLE BOTH EYES SCH ×2 (11:15→21:51)
[2018-10-21] MEDS: TIMOLOL 0.5% OPH SOLN 5 ML BOTTLE BOTH EYES SCH ×2 (11:15→21:51)
[2018-10-21] MEDS: FLUOROMETHOLONE 0.1% OPH SUSP 5 ML BOTTLE BOTH EYES SCH (11:15)
[2018-10-21] MEDS: SODIUM CHLORIDE 0.45% 1,000 ML IV SCH (15:27)
[2018-10-21] MEDS: IBUPROFEN 400 MG TABLET PO PRN (21:51)
[2018-10-22] MEDS: ALBUTEROL/IPRATROPIUM 3 ML NEB RESP TX SCH ×6 (00:06→21:45)
[2018-10-22] MEDS: METOPROLOL TARTRATE 5 MG/5 ML VIAL IV SCH ×3 (00:31→12:40)
[2018-10-22] MEDS: CLOTRIMAZOLE 10 MG TROCHE PO SCH ×5 (06:38→22:27)
[2018-10-22] MEDS: INSULIN REGULAR 100 UNIT/ML SUBCUT SCH ×4 (10:00→22:27)
[2018-10-22] MEDS: FUROSEMIDE 40 MG TABLET PO SCH (10:00)
[2018-10-22] MEDS: ASPIRIN EC 81 MG TABLET PO SCH (10:00)
[2018-10-22] MEDS: SPIRONOLACTONE 50 MG TABLET PO SCH (10:01)
[2018-10-22] MEDS: APIXABAN 2.5 MG TABLET PO SCH ×2 (10:01→20:58)
[2018-10-22] MEDS: PANTOPRAZOLE 40 MG TABLET PO SCH (10:01)
[2018-10-22] MEDS: INSULIN GLARGINE 100 UNIT/ML SUBCUT SCH (10:01)
[2018-10-22] MEDS: ASCORBIC ACID 500 MG TABLET PO SCH ×3 (10:01→20:58)
[2018-10-22] MEDS: FLUCONAZOLE INJ 200 MG in PREMIX 1 EACH IV SCH (12:30)
[2018-10-22] MEDS: TIMOLOL 0.5% OPH SOLN 5 ML BOTTLE BOTH EYES SCH ×2 (12:34→20:58)
[2018-10-22] MEDS: DORZOLAMIDE 2% OPH SOLN 10 ML BOTTLE BOTH EYES SCH ×2 (12:34→22:27)
[2018-10-22] MEDS: FLUOROMETHOLONE 0.1% OPH SUSP 5 ML BOTTLE BOTH EYES SCH (14:49)
[2018-10-22] MEDS: IBUPROFEN 400 MG TABLET PO PRN (20:57)
[2018-10-22] MEDS: PANTOPRAZOLE 40 MG VIAL IV SCH (20:58)
[2018-10-22] MEDS: SODIUM CHLORIDE 0.45% 1,000 ML IV SCH (22:28)
[2018-10-23] MEDS: ALBUTEROL/IPRATROPIUM 3 ML NEB RESP TX SCH ×7 (01:14→23:14)
[2018-10-23 03:32] LABS: Basophils % 0.1 % (0.0-0.8); Eosinophils # 0.1 10*3/uL (0.0-0.87); Eosinophils % 0.5 % (0.00-10.9); Hematocrit 34.4 VOL% (35.7-47.0); Hemoglobin 10.9 GM/DL (12.0-16.0); Immature Granulocytes % 0.8 %; Immature Granulocytes Absolute 0.15 #; Mean Corpuscular HGB Conc 31.7 GM/DL (32-36); Mean Corpuscular Hemoglobin 28 PG (27-34); Mean Corpuscular Volume 89.1 FL (87-102); Mean Platelet Volume 11.9 FL (9.6-12.0); Monocytes # 1.6 10*3/uL (0.11-0.8); Neutrophils # 14.3 10*3/uL (1.4-7.4); Neutrophils % 78.6 % (38.7-73.9); Platelet Count 260 T/CUMM (130-400); Red Blood Count 3.86 MC/CUMM (3.8-5.5); Red Cell Distribution Width 15.7 % (9.3-17.3); White Blood Count 18.2 T/CUMM (4-12)
[2018-10-23 03:51] LABS: Osmolality,Calculated 271.1 MOS/KG (273-304); Potassium 3.6 MMOL/L (3.5-5.1)
[2018-10-23] MEDS: CLOTRIMAZOLE 10 MG TROCHE PO SCH ×5 (06:02→21:36)
[2018-10-23] MEDS: INSULIN REGULAR 100 UNIT/ML SUBCUT SCH ×4 (08:31→21:36)
[2018-10-23] MEDS ORDERED: POLYETHYLENE GLYCOL POWDER 17 GM PACK PO PRN (09:04)
[2018-10-23] MEDS: SPIRONOLACTONE 50 MG TABLET PO SCH (10:40)
[2018-10-23] MEDS: APIXABAN 2.5 MG TABLET PO SCH ×2 (10:41→21:36)
[2018-10-23] MEDS: ASPIRIN EC 81 MG TABLET PO SCH (10:41)
[2018-10-23] MEDS: BACITRACIN OINT 0.9 GM PACK TOP SCH (10:41)
[2018-10-23] MEDS: INSULIN GLARGINE 100 UNIT/ML SUBCUT SCH (10:41)
[2018-10-23] MEDS: FUROSEMIDE 40 MG TABLET PO SCH (10:42)
[2018-10-23] MEDS: ASCORBIC ACID 500 MG TABLET PO SCH ×2 (10:43→21:36)
[2018-10-23] MEDS: DORZOLAMIDE 2% OPH SOLN 10 ML BOTTLE BOTH EYES SCH ×2 (10:43→21:37)
[2018-10-23] MEDS: TIMOLOL 0.5% OPH SOLN 5 ML BOTTLE BOTH EYES SCH ×2 (10:43→21:37)
[2018-10-23] MEDS: metOLazone 2.5 MG TABLET PO SCH (10:44)
[2018-10-23] MEDS: PANTOPRAZOLE 40 MG VIAL IV SCH ×2 (10:49→21:37)
[2018-10-23] MEDS: POLYETHYLENE GLYCOL POWDER 17 GM PACK PO SCH (11:02)
[2018-10-23] MEDS: FLUOROMETHOLONE 0.1% OPH SUSP 5 ML BOTTLE BOTH EYES SCH (11:23)
[2018-10-23] MEDS: FLUCONAZOLE INJ 200 MG in PREMIX 1 EACH IV SCH (13:02)
[2018-10-23] MEDS ORDERED: POTASSIUM CHLORIDE 20 MEQ PACK PO ONE (13:37)
[2018-10-23] MEDS: IBUPROFEN 400 MG TABLET PO PRN (21:36)
[2018-10-23] MEDS ORDERED: ALUMINUM/MAGNES/SIMETH MAX STR 30 ML UDCUP PO PRN (22:43)
[2018-10-24] MEDS: ONDANSETRON 4 MG/2 ML VIAL IV PRN ×2 (02:46→10:59)
[2018-10-24] MEDS ORDERED: PROMETHAZINE 25 MG/1 ML VIAL IM PRN (02:50)
[2018-10-24 02:51] LABS: Calcium 7.2 MG/DL (8.5-10.1); Osmolality,Calculated 276.1 MOS/KG (273-304)
[2018-10-24] MEDS: ALBUTEROL/IPRATROPIUM 3 ML NEB RESP TX SCH ×4 (03:22→15:50)
[2018-10-24] MEDS: CLOTRIMAZOLE 10 MG TROCHE PO SCH ×3 (05:09→19:11)
[2018-10-24] MEDS ORDERED: FUROSEMIDE 40 MG/4 ML VIAL IV SCH (09:00)
[2018-10-24] MEDS ORDERED: MORPHINE 4 MG/1 ML VIAL IV PRN (10:13)
[2018-10-24 10:25] LABS: Troponin I 0.028 NG/ML (0.00-0.045)
[2018-10-24] MEDS: INSULIN REGULAR 100 UNIT/ML SUBCUT SCH ×4 (11:12→19:12)
[2018-10-24] MEDS: ASPIRIN EC 81 MG TABLET PO SCH (11:13)
[2018-10-24] MEDS: SPIRONOLACTONE 50 MG TABLET PO SCH (11:13)
[2018-10-24] MEDS: BACITRACIN OINT 0.9 GM PACK TOP SCH (11:14)
[2018-10-24] MEDS: APIXABAN 2.5 MG TABLET PO SCH (11:15)
[2018-10-24] MEDS: POLYETHYLENE GLYCOL POWDER 17 GM PACK PO SCH (11:15)
[2018-10-24] MEDS: INSULIN GLARGINE 100 UNIT/ML SUBCUT SCH (11:15)
[2018-10-24] MEDS: ASCORBIC ACID 500 MG TABLET PO SCH (11:16)
[2018-10-24] MEDS: metOLazone 2.5 MG TABLET PO SCH (11:16)
[2018-10-24] MEDS: PANTOPRAZOLE 40 MG VIAL IV SCH (11:49)
[2018-10-24 11:57] VITALS: BP 101/59
[2018-10-24] MEDS: ACETAMINOPHEN 325 MG TABLET PO PRN (11:57)
[2018-10-24] MEDS: TIMOLOL 0.5% OPH SOLN 5 ML BOTTLE BOTH EYES SCH (12:16)
[2018-10-24] MEDS: FLUOROMETHOLONE 0.1% OPH SUSP 5 ML BOTTLE BOTH EYES SCH (12:16)
[2018-10-24] MEDS ORDERED: HYDROmorphone 2 MG/1 ML VIAL IV PRN (12:17)
[2018-10-24] MEDS: DORZOLAMIDE 2% OPH SOLN 10 ML BOTTLE BOTH EYES SCH (12:17)
[2018-10-24] MEDS: FLUCONAZOLE INJ 200 MG in PREMIX 1 EACH IV SCH (12:49)
[2018-10-24 13:30] LABS: Troponin I 0.031 NG/ML (0.00-0.045)
== END 2018-10-24 16:40 | disposition expired | DRG 177 ==
LOC: N.ICU 09:01 → SUATTDRO 09:01 → N.TELES 10-14 11:37
PROVIDERS: ADMIT Internal Medicine; ATTEND Internal Medicine